=== PATIENT | female | born 1970 | race Caucasian/White ===

== ENCOUNTER 2023-11-14 15:01 | Outpatient (AMB) | payer OTHER, SELFPAY ==
--- NOTE | 2023-11-14 15:04 | A.OFFVIS_ITS ---
Vital Signs 11/14/23 15:15 Height 5 ft 7 in Weight 136 lb 7.458 oz BMI 21.4 BP 140/90 H Blood Pressure Location Rt brachial Position Sitting Pulse 96 Pulse Source Pulse Oximeter Pulse Oximetry (%) 97 Oxygen Delivery Method Room Air Intake Visit Reasons: PMR/CM Intake Note: Patient presents for PMR. Allergies Sulfa (Sulfonamide Antibiotics) Adverse Reaction (Unknown, Verified 11/14/23 15:08) Unknown Medication List - Last Reconciled 11/14/23 by Daniel Holm MD albuterol sulfate 90 mcg/actuation inhalation HPI Comments Details: This is a 53-year-old female who presents for evaluation of temporal arteritis/PMR. Since 1999 patient has been in a lot of pain in different areas including her spine, her knees, her legs. She used to see a specialist and had multiple procedures and injections of her back without much relief. She would also get intermittent courses of prednisone usually for about 10 days out of the year without much relief. Towards the end of June of 2023 she woke up 1 day with abrupt swelling of her entire head associated with mild headache and inability to open her eye. She went to the emergency room and there were some abnormalities in her blood work, temporal arteritis was suspected, she was prescribed prednisone 60 mg daily, she was supposed to see her primary doctor in a few days but there was miscommunication and she took 60 mg of prednisone for one-month. She developed significant swelling of her head after one-month. Prednisone dose was cut down. She also had a CT scan of the neck which was unremarkable, a brain MRI was unremarkable. Patient's prednisone has been tapered off since August. She has not had any recurrence of symptoms. She was evaluated by a surgeon for temporal artery biopsy 2 weeks ago and per patient the surgeon did not believe she had temporal arteritis. She states that her legs give out on her She states that she has a cousin with MS otherwise she is unaware of any family history of an autoimmune disease She denies any history of DVT/PE PFSH Surgical History Hx of hysterectomy Family History Mother Dementia Stroke Father Hypertension Sleep apnea Sister Degenerative disc disease, lumbar Sister Hypertension Social History Household Members: Other Housing: House Alcohol intake: current Comment: 5 drinks a week Patient Tobacco Use Status: Current everyday Tobacco user Cigarette Packs Per Day: 1 Cigarettes Per Day: 20 Years Smoked: 30 Female Reproductive History Menstrual Total pregnancies: 2 Full term: 2 Review of Systems Const Reports fatigue, Reports headache(s), Reports weakness and Reports weight gain Eyes Reports blurry vision and Reports itchy eyes ENT Reports dysphagia and Reports headache(s) Card Reports dyspnea Resp Reports cough, Reports dyspnea and Reports wheezing GI Reports dysphagia and Reports diarrhea Reports sexual dysfunction Musc Reports arthralgias and Reports stiffness Neuro Reports headache(s) and Reports weakness Endo Reports fatigue Aller/Immun Reports itchy eyes and Reports wheezing Physical Exam Vital Signs: Last Vital Signs Pulse 96 11/14/23 15:15 BP 140/90 H 11/14/23 15:15 Pulse Ox 97 11/14/23 15:15 Oxygen Delivery Method Room Air 11/14/23 15:15 BMI result Body Mass Index 21.4 Const General: cooperative, healthy appearing and comfortable Nutritional Appearance: average body habitus Orientation/consciousness: patient oriented x3 Limitations: no limitations HEENT Other: No temporal area tenderness bilaterally Patient showed me a picture of her face after taking prednisone 60 mg for one- month which showed significant symmetrical swelling of her entire face Head: Yes normocephalic and Yes atraumatic Mouth: moist mucous membranes Resp Effort & Inspection: normal respiratory effort and able to speak in complete sentences Auscultation: clear to auscultation bilaterally Cardio Rate: regular rate Skin General skin exam: no rashes or lesions noted Neuro General: patient oriented x3 Extrem Other: Mild osteoarthritic changes of both hands with no active synovitis Bilateral knee pain with full flexion-extension Normal nailfold capillaroscopy Assessment & Plan Assessment & Plan (1) Facial swelling: Code(s): R22.0 - Localized swelling, mass and lump, head Category: Medical Plan: This is a 53 year old female who presents for evaluation of possible temporal arteritis. Going through her history, her history is not classic for temporal arteritis, generally does not present with swelling, usually presents with severe headache. Patient stated that she did not have any severe headache. Symptoms also requires high doses of prednisone for at least 6 months, patient discontinued her prednisone for 2 months without recurrence of symptoms. At this time I do not think a temporal artery biopsy is warranted. Patient can return to clinic as needed Patient is complaining of her knees giving out on her. Advised patient to follow-up with an orthopedist Plan I spent 30 minutes reviewing patient's chart, evaluating patient, counseling patient and documenting in the chart Coding Level of Care Code New Pt Level 3 (90684) Diagnoses Facial swelling R22.0
[2023-11-14 15:15] VITALS: BP 140/90; PULSE 96; O2SAT 97; BMI 21.4
== END 2023-11-14 16:17 | disposition home or self-care (01) ==
PROVIDERS: PCP Internal Medicine; Referring Provider Internal Medicine; Visit Provider Student in an Organized Health Care Education/Training Program
DX: R22.0 Localized swelling, mass and lump, head (principal)
CPT/HCPCS: 99203

== ENCOUNTER → 2023-11-14 15:01 | Outpatient (BNVA) | payer OTHER, SELFPAY | PROVIDERS: PCP Internal Medicine; Visit Provider Student in an Organized Health Care Education/Training Program | DX: R22.0 Localized swelling, mass and lump, head (principal); M35.3 Polymyalgia rheumatica | CPT/HCPCS: 99202 ==